=== PATIENT | female | born 1980 | race Caucasian/White ===

== ENCOUNTER 2017-02-01 19:48 | Inpatient (IN) | payer MEDICAID, OTHER ==
[~2017-02-01 19:48] MED LIST: CLON.5 PO; HYDR10FO PR; LIBRAX PO; OXYC10TA8 PO; PRED10 PO; SERT100 PO
[2017-02-01 19:52] VITALS: BP 91/54; PULSE 72; RESP 16; TEMP 97.9; O2SAT 97
[2017-02-01] MEDS ORDERED: OXYC15TA PO (20:44)
[2017-02-01] MEDS ORDERED: BUPR150XL PO (20:44)
[2017-02-01] MEDS ORDERED: LAMO150 PO (20:44)
[2017-02-01] MEDS ORDERED: ZOLO100T PO (20:44)
[2017-02-01] MEDS ORDERED: KLON2TAB PO (20:44)
[2017-02-01 22:05] VITALS: BP 114/55; PULSE 58; RESP 16; TEMP 97.9; O2SAT 99
[2017-02-01] MEDS ORDERED: SODIUM CHLOR 0.9% 1000 ML INJ 1,000 ML IV ONE (22:37)
[2017-02-01] MEDS ORDERED: KETOROLAC TROMETHAMINE 30 MG/ML (IVP) VIAL IVP ONE (22:45)
[2017-02-01] MEDS ORDERED: ONDANSETRON HCL 4 MG/2 ML VIAL IVP ONE (22:45)
[2017-02-01] MEDS ORDERED: PROCHLORPERAZINE INJ 10 MG/2 ML VIAL IVP ONE (22:45)
[2017-02-01] MEDS ORDERED: BUPRENORPHINE HCL 8 MG SUBLINGUAL TAB SL ONE (22:45)
[2017-02-01] MEDS ORDERED: SODIUM CHLORIDE 0.9% FLUSH 10 ML FLUSH IVF PRN (22:45)
[2017-02-01] MEDS ORDERED: SODIUM CHLOR 0.9% 1000 ML INJ 1,000 ML IV SCH (22:45)
[2017-02-01] MEDS ORDERED: diphenhydrAMINE HCL 50 MG/ML VIAL IVP ONE (22:45)
[2017-02-01 23:00] VITALS: BP 102/52; PULSE 60; RESP 26; O2SAT 93
--- NOTE | 2017-02-01 23:00 | PD ---
HPI Chief Complaint: Medical Clearance Time Seen by Provider: 22:52 Travel History International Travel<30 days: No Contact w/Intl Traveler<30days: No Traveled to known affect area: No History of Present Illness HPI 36-year-old female with PMH of depression, anxiety, Crohn's disease, substance abuse in remission presents the ED for evaluation of headache and right-sided neck swelling. Patient states that she was sent by her INDUCTOR TESTER Dr. Forrester who has been managing her medical problem. On presentation she complains of "terrible right-sided migraine headache." She denies photophobia, vision changes or dizziness. She complains of mild nausea and ongoing fatigue. She denies swallowing difficulties. She does endorse a "tickle" in her throat and feeling as if she needs to clear her throat constantly. She denies fever, chills, cough, chest pain, shortness of breath, abdominal pain. I spoke with Dr. Forrester on the phone who states that the patient has been complaining of fatigue for a long period of time. She states over the last 3 or 4 days she had swelling and pain in the right side of the neck. She underwent an outpatient ultrasound and CT that was suspicious for thyroid cancer. Dr. Forrester made the patient aware of this finding and requested that she come to the hospital for ultrasound-guided needle biopsy. Patient states that she is very anxious and "wants to use" but chose to come to the hospital for treatment instead. PFSH Past Medical History ADD: Yes Anemia: Yes Blood Disorders: Yes (CROHN'S DISEASE X 3YRS) Anxiety: Yes Depression: Yes Cancer: Yes (COLON WITH COLECTOMY IN 2007) Cardiovascular Problems: No Chemotherapy: No Diabetes: No Diminished Hearing: No Endocrine: No Gastrointestinal Disorders: Yes (CROHNS) Genitourinary: No Headaches: Yes Immune Disorder: No Musculoskeletal: No Neurologic: No Psychiatric: Yes Respiratory: No Immunizations Current: Yes Migraines: Yes Radiation Therapy: No Seizures: Yes Thyroid Disease: No ?: Not LMP: 01/27/17 Menopausal: No : 2 Para: 1 Miscarriage: 0 : 1 Tubal Ligation: Yes Past Surgical History Abdominal Surgery: Yes AICD: No Body Medical Devices: HISTORY OF CHRONES DISEASE Cardiac Surgery: No Section: Yes (X2) Endocrine Surgery: No Eye Surgery: No Genitourinary Surgery: No Gynecologic Surgery: No Joint Replacement: No Oral Surgery: No Pacemaker: No Thoracic Surgery: No Other Surgery: Yes (PARTIAL COLECTOMY-ANAL FISSURE REPAIR) Social History Alcohol Use: No Tobacco Use: Yes Substance Use: No Allergies-Medications (Allergen,Severity, Reaction): Coded Allergies: Cranberry (Verified Allergy, Severe, Hives, 02/01/17) 10/21/05: PT GETS HIVES WITH CRANBERRIES Morphine (Verified Allergy, Severe, Rash, 02/01/17) Sulfa (Verified Allergy, Severe, Nausea/Vomiting, 02/01/17) Sulfasalazine (Verified Allergy, Severe, 10/24/05:PER H&P,PT TAKES MESALAMINE AT HOME W/O ADV EFF, 02/01/17) 10/24/05: PER H&P, PT TAKES MESALAMINE AT HOME WITHOUT ADVERSE EFFECTS. Dilaudid (Verified Adverse Reaction, Severe, severe headaches, 02/01/17) Reported Meds & Prescriptions Reported Meds & Active Scripts Active Reported Oxycodone (Oxycodone HCl) 15 Mg Tab 15 Mg PO Q4H PRN Wellbutrin Xl 24 HR (Bupropion HCl) 150 Mg Tab 150 Mg PO DAILY Lamictal (Lamotrigine) 150 Mg Tab 150 Mg PO DAILY Zoloft (Sertraline HCl) 100 Mg Tab 100 Mg PO DAILY Klonopin (Clonazepam) 2 Mg Tab 2 Mg PO TID Review of Systems Except as stated in HPI: all other systems reviewed are Neg Physical Exam Narrative GENERAL: Well-nourished, well-developed anxious white female in no acute distress. SKIN: Warm and dry. HEAD: Normocephalic. Atraumatic. EYES: No scleral icterus. No injection or drainage. PERRLA. EOMI. ENT: Pearly mittal tympanic membranes bilaterally. Nasal mucosa is moist. Oropharynx without erythema, edema or exudate. NECK: Supple, trachea midline. No JVD. Large, tender, firm right-sided neck mass. CARDIOVASCULAR: Regular rate and rhythm without murmurs, gallops, or rubs. 2+ DP and radial pulses bilaterally. RESPIRATORY: Breath sounds clear and equal bilaterally. No accessory muscle use. GASTROINTESTINAL: Abdomen soft, non-tender, nondistended. + Bowel sounds MUSCULOSKELETAL: No cyanosis, or edema. Patient is ambulatory and noted to walk with a normal gait. NEUROLOGICAL: Awake and alert. Cranial nerves II through XII intact. Motor and sensory grossly within normal limits. Five out of 5 muscle strength in all muscle groups. Normal speech. BACK: Nontender without obvious deformity. No CVA tenderness. Data Data Last Documented VS Vital Signs Date Time Temp Pulse Resp B/P Pulse Ox O2 Delivery O2 Flow Rate FiO2 02/01/17 22:05 97.9 58 16 114/55 99 Orders Complete Blood Count With Diff (02/01/17 22:37) Comprehensive Metabolic Panel (02/01/17 22:37) Westergren Sedimentation Rate (02/01/17 22:37) C-Reactive Protein (Crp) (02/01/17 22:37) Prothrombin Time / Inr (Pt) (02/01/17 22:37) Act Partial Throm Time (Ptt) (02/01/17 22:37) Ecg Monitoring (02/01/17 22:37) Iv Access Insert/Monitor (02/01/17 22:37) Oximetry (02/01/17 22:37) Sodium Chloride 0.9% Flush (Ns Flush) (02/01/17 22:45) Ketorolac Inj (Toradol Inj) (02/01/17 22:45) Ondansetron Inj (Zofran Inj) (02/01/17 22:45) Prochlorperazine Inj (Compazine Inj) (02/01/17 22:45) Diphenhydramine Inj (Benadryl Inj) (02/01/17 22:45) Sodium Chlor 0.9% 1000 Ml Inj (Ns 1000 M (02/01/17 22:37) Admit Order (Ed Use Only) (02/01/17 22:44) Buprenorphine (Buprenorphine) (02/01/17 22:45) Clonazepam (Klonopin) (02/01/17 22:45) Sodium Chlor 0.9% 1000 Ml Inj (Ns 1000 M (02/01/17 22:45) Labs Laboratory Tests Test 02/01/17 22:45 Erythrocyte Sedimentation Rate 9 mm/hr Prothrombin Time 10.8 SEC Prothromb Time International 1.0 RATIO Ratio Activated Partial 26.1 SEC Thromboplast Time Sodium Level 139 MEQ/L Potassium Level 3.7 MEQ/L Chloride Level 104 MEQ/L Carbon Dioxide Level 27.9 MEQ/L Anion Gap 7 MEQ/L Blood Urea Nitrogen 13 MG/DL Creatinine 0.64 MG/DL Estimat Glomerular Filtration 106 ML/MIN Rate Random Glucose 78 MG/DL Calcium Level 9.1 MG/DL Total Bilirubin 0.4 MG/DL Aspartate Amino Transf 70 U/L (AST/SGOT) Alanine Aminotransferase 75 U/L (ALT/SGPT) Alkaline Phosphatase 100 U/L C-Reactive Protein 0.75 MG/DL Total Protein 7.2 GM/DL Albumin 3.9 GM/DL White Blood Count 6.2 TH/MM3 Red Blood Count 4.45 MIL/MM3 Hemoglobin 13.5 GM/DL Hematocrit 38.0 % Mean Corpuscular Volume 85.5 FL Mean Corpuscular Hemoglobin 30.3 PG Mean Corpuscular Hemoglobin 35.4 % Concent Red Cell Distribution Width 12.4 % Platelet Count 232 TH/MM3 Mean Platelet Volume 9.2 FL Neutrophils (%) (Auto) 48.4 % Lymphocytes (%) (Auto) 34.9 % Monocytes (%) (Auto) 10.1 % Eosinophils (%) (Auto) 6.0 % Basophils (%) (Auto) 0.6 % Neutrophils # (Auto) 3.0 TH/MM3 Lymphocytes # (Auto) 2.2 TH/MM3 Monocytes # (Auto) 0.6 TH/MM3 Eosinophils # (Auto) 0.4 TH/MM3 Basophils # (Auto) 0.0 TH/MM3 CBC Comment DIFF FINAL Differential Comment MDM Medical Decision Making Medical Screen Exam Complete: Yes Emergency Medical Condition: Yes Differential Diagnosis neck mass versus thyroid mass versus lymphadenopathy versus cephalgia versus anxiety versus other Narrative Course 36-year-old female with PMH of depression, anxiety, Crohn's disease, substance abuse in remission presents the ED for evaluation of headache and right-sided neck swelling. On presentation she complains of "terrible right-sided migraine headache." She complains of mild nausea and ongoing fatigue. She denies photophobia, vision changes, dizziness, or swallowing difficulties. She does endorse a "tickle" in her throat and feeling as if she needs to clear her throat constantly. She denies fever, chills, cough, chest pain, shortness of breath, abdominal pain. Patient states that she is very anxious and "wants to use" but chose to come to the hospital for treatment instead. Vitals reviewed. Physical exam reveals an anxious white female in no acute distress. No focal neural deficits. There is a palpable mass in the right anterior neck but the physical exam is otherwise unremarkable. IV was established. Patient was administered Benadryl, Toradol, Compazine, 1 L normal saline. I offered her second dose of Suboxone which she declined. I spoke with Dr. Forrester on the phone who states that the patient has been complaining of fatigue for a long period of time. She states over the last 3 or 4 days she had swelling and pain in the right side of the neck. The patient underwent an outpatient ultrasound and CT that was suspicious for thyroid cancer. Dr. Forrester made the patient aware of this finding and requested that she come to the hospital for ultrasound-guided needle biopsy. OUTPATIENT IMAGING: US 01/31 ([place]) massive right neck representing either multiple adjacent lymph nodes for one solid mass. CT 02/01 ([place]) heterogeneously enhancing nodule in the superior aspect of the right lobe of the thyroid with enlarged, enhancing and centrally necrotic nodes in the jugular chain. Concerning for malignancy, possible thyroid in origin. Suggest ultrasound guided biopsy. Patient admitted to Dr. Forrester. US biopsy ordered. Please see those notes for disposition. Diagnosis Primary Impression: Neck mass Additional Impression: Cephalgia Qualified Code: R51 - Nonintractable episodic headache, unspecified headache type Maura Mendiola Feb 01, 2017 23:00
[2017-02-01 23:13] LABS: ALT (GPT) 75 U/L (10-53); ANION GAP 7 MEQ/L (5-15); AST (GOT) 70 U/L (15-37); BICARBONATE 27.9 MEQ/L (21.0-32.0); BLOOD UREA NITROGEN 13 MG/DL (7-18); CHLORIDE 104 MEQ/L (98-107); GLOMERULAR FILTRATION RATE 106 ML/MIN (>89); POTASSIUM 3.7 MEQ/L (3.5-5.1); SODIUM (NA) 139 MEQ/L (136-145)
[2017-02-01 23:15] LABS: ALKALINE PHOSPHATASE 100 U/L (45-117); TOTAL BILIRUBIN ADULT 0.4 MG/DL (0.2-1.0)
[2017-02-01 23:33] LABS: APTT (PATIENT) 26.1 SEC (24.3-30.1); PROTHROMBIN TIME - PATIENT 10.8 SEC (9.8-11.6)
[2017-02-02] VITALS (11 sets, daily range): BP systolic 82–112; BP diastolic 41–72; PULSE 51–100; RESP 15–18; TEMP 96.8–98.2; O2SAT 93–96
[2017-02-02 02:08] LABS: BASOPHIL % 0.6 % (0.0-2.0); EOSINOPHIL # 0.4 TH/MM3 (0-0.4); HEMO FLAGS DIFF FINAL; LYMPH % 34.9 % (9.0-44.0); LYMPHOCYTE # 2.2 TH/MM3 (1.0-4.8); MEAN CELL VOLUME 85.5 FL (80.0-100.0); MEAN CORPUSCULAR HEMOGLOBIN 30.3 PG (27.0-34.0); MEAN CORPUSCULAR HGB CONC 35.4 % (32.0-36.0); MONO % 10.1 % (0.0-8.0); NEUT % 48.4 % (16.0-70.0); PLATELET COUNT 232 TH/MM3 (150-450); RED BLOOD COUNT 4.45 MIL/MM3 (4.00-5.30); RED CELL DISTRIBUTION WIDTH 12.4 % (11.6-17.2); WHITE BLOOD COUNT 6.2 TH/MM3 (4.0-11.0)
--- NOTE | 2017-02-02 07:59 | PD.CONS ---
HPI Chief Complaint cc progressive right neck swelling and pain of several days in context of increasing fatigue and weakness over several months complicated by her depression, anxiety and opioid maintenance program Date Seen: Feb 02, 2017 Time Seen: 07:51 Travel History International Travel<30 Days: No Contact w/Intl Traveler<30Days: No Known Affected Area: No History of Present Illness HPI 36 yo mwf P2 with long history of substance abuse, developed during treatment for Crohn's (which is quiet as this time) Has had several Crohn's procedures and two sections. Difficult management of dual diagnosis over last several years with difficulty identifying theraputic and psychiatric sources of support. Both insurance issues and her reticence to seek additional treatment have been problems SHe was to have first session and [facility] therapy today. Has in past abused her scripts but in last months compliant as confirmed by drug screens. Has continued malaise, dysphoria, agorophobia and overall pain. Chronic right ear aches and pain. Exam on Tuesday was remarkable for large irregular mass in right anterior triangle now imaged and biopsy recommended. She is panicked and describes desire to use illicit drugs due to stress. Brought in last night. Pain in neck is 5-6. Can swallow but tender. Voice not involved. No symptoms radiating down right arm. No fever. Bowels and bladder unchanged Para: 3 Allergies-Medications (Allergen,Severity, Reaction): Coded Allergies: Cranberry (Verified Allergy, Severe, Hives, 02/01/17) 10/21/05: PT GETS HIVES WITH CRANBERRIES Morphine (Verified Allergy, Severe, Rash, 02/01/17) Sulfa (Verified Allergy, Severe, Nausea/Vomiting, 02/01/17) Sulfasalazine (Verified Allergy, Severe, 10/24/05:PER MD H&P,PT TAKES MESALAMINE AT HOME W/O ADV EFF, 02/01/17) 10/24/05: PER MD H&P, PT TAKES MESALAMINE AT HOME WITHOUT ADVERSE EFFECTS. Dilaudid (Verified Adverse Reaction, Severe, severe headaches, 02/01/17) Home Meds Reported Medications Oxycodone 15 Mg Tab15 Mg PO Q4H PRN (PAIN) Ref 0 02/01/17 Bupropion HCl ER 24 HR (Wellbutrin Xl 24 HR)150 Mg [id number] Mg PO DAILY Ref 0 02/01/17 Lamotrigine (Lamictal)150 Mg [id number] Mg PO DAILY #60 TAB Ref 0 02/01/17 Sertraline (Zoloft)100 Mg [id number] Mg PO DAILY #30 TAB Ref 0 02/01/17 Clonazepam (Klonopin)2 Mg Tab2 Mg PO TID #90 TAB Ref 0 02/01/17 Review of Systems Eyes: Pain HENT: Headaches, Lightheadedness Musculoskeletal: Weakness, Pain Neurologic: Weakness, Headache Psychiatric: Anxiety, Depression, Mood Disorder, Substance Abuse Hematologic/Lymphatic: Lymph Node Enlargement Physical Exam Vital Signs Date Time Temp Pulse Resp B/P Pulse Ox O2 Delivery O2 Flow Rate FiO2 02/02/17 04:05 98.1 52 16 95/48 96 02/02/17 02:39 97.1 56 16 89/59 94 02/02/17 02:02 64 12 101/62 94 02/02/17 01:33 56 16 99/55 94 02/02/17 00:00 64 15 100/56 93 02/01/17 23:00 60 26 102/52 93 02/01/17 22:05 97.9 58 16 114/55 99 02/01/17 19:52 97.9 72 16 91/54 97 Narrative GENERAL: Well-nourished, well-developed patient. SKIN: Warm and dry. HEAD: Normocephalic and atraumatic. EYES: No scleral icterus. No injection or drainage. ENT: No nasal drainage noted. Mucous membranes pink. Airway patent. Mass as described and imaged NECK: Supple, trachea midline. No JVD. as above CARDIOVASCULAR: Regular rate and rhythm without murmurs, gallops, or rubs. RESPIRATORY: Breath sounds equal bilaterally. No accessory muscle use. BREASTS: Bilateral exam showed no masses , no retractions, no nipple discharge. ABDOMEN/GI: Abdomen soft, non-tender, bowel sounds present, no rebound, no guarding EXTREMITIES: No cyanosis or edema. BACK: Nontender without obvious deformity. No CVA tenderness. NEUROLOGICAL: Awake and alert. Motor and sensory grossly within normal limits. Five out of 5 muscle strength in all muscle groups. Normal speech. Data Data Vital Signs Reviewed: Yes Orders Complete Blood Count With Diff (02/01/17 22:37) Comprehensive Metabolic Panel (02/01/17 22:37) Westergren Sedimentation Rate (02/01/17 22:37) C-Reactive Protein (Crp) (02/01/17 22:37) Prothrombin Time / Inr (Pt) (02/01/17 22:37) Act Partial Throm Time (Ptt) (02/01/17 22:37) Ecg Monitoring (02/01/17 22:37) Iv Access Insert/Monitor (02/01/17 22:37) Oximetry (02/01/17 22:37) Sodium Chloride 0.9% Flush (Ns Flush) (02/01/17 22:45) Ketorolac Inj (Toradol Inj) (02/01/17 22:45) Ondansetron Inj (Zofran Inj) (02/01/17 22:45) Prochlorperazine Inj (Compazine Inj) (02/01/17 22:45) Diphenhydramine Inj (Benadryl Inj) (02/01/17 22:45) Sodium Chlor 0.9% 1000 Ml Inj (Ns 1000 M (02/01/17 22:37) Admit Order (Ed Use Only) (02/01/17 22:44) Buprenorphine (Buprenorphine) (02/01/17 22:45) Clonazepam (Klonopin) (02/01/17 22:45) Sodium Chlor 0.9% 1000 Ml Inj (Ns 1000 M (02/01/17 22:45) Activity Oob Ad Salma (02/01/17 23:00) Vital Signs (Adult) [id number].[id number] AWAKE (02/01/17 23:00) Diet Npo Except Meds (02/02/17 Breakfast) Labs Laboratory Tests Test 02/01/17 22:45 Erythrocyte Sedimentation Rate 9 Prothrombin Time 10.8 Prothromb Time International 1.0 Ratio Activated Partial 26.1 Thromboplast Time Sodium Level 139 Potassium Level 3.7 Chloride Level 104 Carbon Dioxide Level 27.9 Anion Gap 7 Blood Urea Nitrogen 13 Creatinine 0.64 Estimat Glomerular Filtration 106 Rate Random Glucose 78 Calcium Level 9.1 Total Bilirubin 0.4 Aspartate Amino Transf 70 (AST/SGOT) Alanine Aminotransferase 75 (ALT/SGPT) Alkaline Phosphatase 100 C-Reactive Protein 0.75 Total Protein 7.2 Albumin 3.9 White Blood Count 6.2 Red Blood Count 4.45 Hemoglobin 13.5 Hematocrit 38.0 Mean Corpuscular Volume 85.5 Mean Corpuscular Hemoglobin 30.3 Mean Corpuscular Hemoglobin 35.4 Concent Red Cell Distribution Width 12.4 Platelet Count 232 Mean Platelet Volume 9.2 Neutrophils (%) (Auto) 48.4 Lymphocytes (%) (Auto) 34.9 Monocytes (%) (Auto) 10.1 Eosinophils (%) (Auto) 6.0 Basophils (%) (Auto) 0.6 Neutrophils # (Auto) 3.0 Lymphocytes # (Auto) 2.2 Monocytes # (Auto) 0.6 Eosinophils # (Auto) 0.4 Basophils # (Auto) 0.0 CBC Comment DIFF FINAL Differential Comment MDM Plan needs biospy of mass needs medication maintenance [facility] current medication regimen provided by [facility] skinner Admitting diagnosis: neck mass Claire Forrester MD Feb 02, 2017 07:58
[2017-02-02] MEDS ORDERED: PILL SPLITTER OTHER PRN (08:15)
[2017-02-02 10:14] LABS: BETA HCG QUANT LESS THAN 1 MIU/ML (0-5)
[2017-02-02] MEDS ORDERED: KETOROLAC TROMETHAMINE 30 MG/ML (IVP) VIAL IV PUSH ONE (11:00)
[2017-02-02] MEDS: AMOXICILLIN/CLAVULANATE K 875 MG TAB PO SCH ×2 (11:00→19:50)
[2017-02-02] MEDS: lamoTRIgine 100 MG TAB PO SCH (11:00)
[2017-02-02] MEDS: BUPRENORPHINE/NALOXONE 8 MG/2 MG SUBLINGUAL TAB SL SCH ×3 (13:00→18:00)
[2017-02-02] MEDS ORDERED: LIDOCAINE 1%/EPINEPHrine 1:100,000 SOLN 20 ML VIAL ONE (14:10)
[2017-02-02] MEDS ORDERED: fentaNYL CITRATE 250 MCG/5 ML AMP ONE (14:18)
[2017-02-02] MEDS ORDERED: MIDAZOLAM HCL 5 MG/5 ML VIAL ONE (14:19)
--- NOTE | 2017-02-02 15:42 | PD.RAD ---
Post CT Procedure Prog Note Pre Procedure Diagnosis: (1) Neck mass Post Procedure Diagnosis: (1) Neck mass Procedure Date: Feb 02, 2017 Supervising Radiologist: Enio Bush Proceduralist/Assist: Amado Frances RT(R)(CT) Anesthesia: Conscious Sedation Plan of Activity Patient to Unit: Nursing Unit Patient Condition: Good See PACS Report for procedural detail/treatment Biopsy Biopsy Procedure: Lymph Node Specimen: Core Biopsy Enio Bush MD Feb 02, 2017 15:42
--- NOTE | 2017-02-02 16:16 | RADRPT ---
EXAM DATE/TIME: 02/02/2017 14:37 [facility] COMPARISON: No previous studies available for comparison.8 INDICATIONS : Right neck mass SEDATION TIME: 30 minutes BIOPSY SITE: Right neck MEDICATION(S): 1.) 2 mg midazolam (Versed) IV 2.) 100 mcg fentanyl (Sublimaze) IV DEVICE(S): 1.) 18 gauge Temno core biopsy needle MEDICAL HISTORY : Crohn's disease. SURGICAL HISTORY : Colectomy ENCOUNTER: Initial ACUITY: 3 days PAIN SCORE: 5/10 LOCATION: Right neck A total of three core specimen(s) were obtained and sent to the laboratory for pathologic evaluation. PROCEDURE: 1. CT guided soft tissue, rightneck biopsy. 2. Conscious sedation with continuous EKG and oximetry monitoring. 3. EKG and oximetry remained stable throughout the procedure. Prior to the procedure informed consent was obtained. Any appropriate prior imaging studies were rev iewed. Using automated exposure control and adjustment of the mA and/or kV according to patient size, radiat ion dose was kept as low as reasonably achievable to obtain optimal diagnostic quality images. The site was prepped in a sterile fashion. Full sterile technique was used, including cap, mask, kylee rile gloves and gown and a large sterile sheet. Hand hygiene and 2% chlorhexidine and/or betadine/al cohol prep was utilized per protocol for cutaneous antisepsis. The skin and subcutaneous tissues wer e infiltrated with local anesthetic solution. With CT guidance the previously identified target was localized. Biopsy was performed using the presc ribed needle as above. Adequate hemostasis was obtained with compression at the puncture site. Follow-up CT scan reveals no hemorrhage. The patient tolerated the procedure well and there were no complications. The patient was returned to the Radiology Outpatient Unit in stable condition. CONCLUSION: Uncomplicated CT guided biopsy. Enio Bush MD on February 02, 2017 at 16:14 Board Certified Radiologist. This report was verified electronically.
[2017-02-02] MEDS: clonazePAM 1 MG TAB PO PRN (16:17)
[2017-02-02] MEDS ORDERED: KETOROLAC TROMETHAMINE 30 MG/ML (IVP) VIAL IV PUSH PRN (18:00)
--- NOTE | 2017-02-02 18:06 | HHI.PR ---
ELIGIBILITY AND OCCUPANCY INTERVIEWER Note Note Resting quietly after CT directed biopy anxious about results labs reviewed and elevated LFTS in part due to hep C Imp: thyroid/lymph node pathology clinically seen and characterized on imaging with path pending subutex dependent anxiety disorder Crohns hep C migraine plan for discharge in am will give sleeper tonight and ofirmev if needed Claire Forrester MD Feb 02, 2017 18:06
[2017-02-02] MEDS ORDERED: ACETAMINOPHEN 1000 MG/100 ML VIAL IV ONE (18:15)
[2017-02-02] MEDS ORDERED: ZOLPIDEM TARTRATE 10 MG TAB PO ONE (20:00)
[2017-02-02] MEDS ORDERED: ACETAMIN 325 MG/BUTALBITAL 50 MG/CAFFEINE 40 MG TAB PO ONE (20:00)
[2017-02-02] MEDS: diphenhydrAMINE HCL 50 MG/ML VIAL IV PRN (23:22)
[2017-02-02] MEDS: ONDANSETRON HCL 4 MG/2 ML VIAL IV PRN (23:22)
[2017-02-02] MEDS: KETOROLAC TROMETHAMINE 30 MG/ML (IVP) VIAL IV PUSH PRN (23:24)
[2017-02-03] VITALS: BP 99/54; PULSE 58; RESP 16; TEMP 96.9; O2SAT 96
[2017-02-03 04:00] VITALS: BP 100/49; PULSE 71; RESP 16; TEMP 97; O2SAT 95
[2017-02-03 08:04] VITALS: BP 101/54; PULSE 68; RESP 16; TEMP 97.5; O2SAT 94
[2017-02-03] MEDS: AMOXICILLIN/CLAVULANATE K 875 MG TAB PO SCH (08:18)
[2017-02-03] MEDS: lamoTRIgine 100 MG TAB PO SCH (08:18)
[2017-02-03] MEDS: BUPRENORPHINE/NALOXONE 8 MG/2 MG SUBLINGUAL TAB SL SCH ×3 (08:18→17:31)
[2017-02-03] MEDS: KETOROLAC TROMETHAMINE 30 MG/ML (IVP) VIAL IV PUSH PRN ×2 (08:18→17:30)
--- NOTE | 2017-02-03 10:37 | PD.PN.STU ---
Subjective Remarks Patient was laying in bed, she states that she feels uncomfortable both at needle biopsy site and in general. She disclosed that if we had not admitted her , she was going to use Dilaudid if she remained on the streets rather than being admitted to the hospital. To our knowledge she has not deviated from suboxone program recently Some UDS in office have been bad. she would prefer fentanyl or morphine but she has Dilaudid accessible. She denies any use. She states that she is just not feeling well because of a combination of the neck biopsy, fear of the unknown and her Crohn's acting up. She states that her grandfather with an enlarging neck mass although she is unsure of the etiology or pathology. Objective Vitals General: patient was laying in bed, did not appear to be in any distress although did appear to be worried/anxious. She has a bandage on the right side of her neck from the biopsy but otherwise appears to be intact. Vital Signs Date Time Temp Pulse Resp B/P Pulse Ox O2 Delivery O2 Flow Rate FiO2 02/03/17 08:04 97.5 68 16 101/54 94 02/03/17 04:00 97.0 71 16 100/49 95 02/03/17 00:00 96.9 58 16 99/54 96 02/02/17 20:00 96.8 100 17 82/51 96 02/02/17 16:57 98.2 88 18 97/53 96 02/02/17 15:45 84 17 112/72 93 02/02/17 15:30 98.2 68 18 111/63 95 02/02/17 12:00 97.1 51 18 94/53 95 I/O 02/02/17 02/02/17 02/02/17 02/03/17 02/03/17 02/03/17 07:00 15:00 23:00 07:00 15:00 23:00 Intake Total 0 ml 0 ml 240 ml 240 ml Balance 0 ml 0 ml 240 ml 240 ml Intake Oral 0 ml 0 ml 240 ml 240 ml # Voids 0 2 1 2 # Bowel Movements 0 0 0 0 Result Diagram: 02/01/17224402/01/172244 A/P Assessment and Plan Neck Mass will discuss with Pathology to determine etiology and best course of action Get surgical consult for evaluation of R neck mass in the event it will require excision or other operative procedures. Crohn's be cautious about foods that are know to cause flares Anxiety: patient is quite anxious, she is not being controlled with Klonopin will consider adding another medication, possibly BuSpar Opioid Dependance: continue Suboxone Discharge Planning Once patient has met with surgery and pathology reports are back to help perform a plan of action patient will be ready for discharge, likely this evening or tomorrow. Will need to be cautious in her current state, she will be at risk for relapse, close follow up recommended Emeka New Feb 03, 2017 10:36 Claire Forrester MD Feb 03, 2017 10:40
[2017-02-03] MEDS: SUCRALFATE 1 GM TAB PO SCH ×3 (11:41→20:45)
[2017-02-03] MEDS: clonazePAM 1 MG TAB PO PRN ×2 (11:47→17:30)
[2017-02-03] MEDS: MORPHINE SULFATE ORAL SOLN 10 MG/0.5 ML SYRINGE PO PRN ×2 (13:35→21:02)
[2017-02-03] MEDS: diphenhydrAMINE HCL 50 MG/ML VIAL IV PRN ×2 (13:45→21:07)
[2017-02-03] MEDS: ONDANSETRON HCL 4 MG/2 ML VIAL IV PRN ×2 (14:44→21:07)
[2017-02-03] MEDS: busPIRone HCL 10 MG TAB PO SCH ×2 (14:47→22:00)
[2017-02-03 15:30] VITALS: BP 109/76; PULSE 82; RESP 16; TEMP 98.8; O2SAT 94
--- NOTE | 2017-02-03 17:05 | PD.CONS ---
cc: Jose Greer MD [facility] Service General Surgery Consult Requested By Dr. Forrester Reason for Consult Evaluation of right-sided neck mass Primary Care Physician Claire Forrester MD History of Present Illness This is a 36-year-old female with past medical history of Crohn's disease, anal fissure, anxiety and depression. She was seen in Dr. Forrester's office for routine evaluation where she complained of right-sided neck pain. Dr. Forrester sent the patient to the ED to be admitted and workup right-sided neck mass. The patient states that approximately 4 months ago she had 3 right ear infections, several migraines and mono. The patient noticed 3 months ago a right sided small mass and pain. Associated symptoms with the mass are chronic coughing, hoarseness and difficulty swallowing. She does not complain of difficulty breathing at any time unless strenuous exercise. The patient has anxiety and has been upset about this mass. She is worried that it may be cancer. On this admission she had a CT-guided lymph node biopsy. The pathology results are pending. A General Surgery evaluation has been requested for evaluation of right-sided neck mass. Review of Systems Constitutional: COMPLAINS OF: Diaphoretic episodes, Fatigue, Weight gain, Change in appetite Endocrine: COMPLAINS OF: Heat/cold intolerance, Polydipsia, Polyuria, DENIES: Polyphagia Eyes: COMPLAINS OF: Blurred vision Ears, nose, mouth, throat: COMPLAINS OF: Throat pain, Hoarseness, Ear Pain ( RIGHT sided ) Respiratory: COMPLAINS OF: Cough Cardiovascular: DENIES: Chest pain Gastrointestinal: COMPLAINS OF: Nausea, Vomiting, Difficulty Swallowing, DENIES: Abdominal pain Genitourinary: COMPLAINS OF: Urinary frequency, Urinary incontinence Musculoskeletal: DENIES: Joint pain Integumentary: DENIES: Abnormal pigmentation Hematologic/lymphatic: DENIES: Bruising Immunologic/allergic: DENIES: Eczema Neurologic: COMPLAINS OF: Localized weakness Psychiatric: COMPLAINS OF: Anxiety, Mood changes, Depression Past Family Social History Past Medical History Crohn's disease Anal fissure Hepatitis C Anxiety and depression Past Surgical History Partial colectomy for Crohn's disease Anal fissure repair Reported Medications See chart Allergies: Coded Allergies: Cranberry (Verified Allergy, Severe, Hives, 02/01/17) 10/21/05: PT GETS HIVES WITH CRANBERRIES Morphine (Verified Allergy, Severe, Rash, 02/01/17) Sulfa (Verified Allergy, Severe, Nausea/Vomiting, 02/01/17) Sulfasalazine (Verified Allergy, Severe, 10/24/05:PER MD H&P,PT TAKES MESALAMINE AT HOME W/O ADV EFF, 02/01/17) 10/24/05: PER MD H&P, PT TAKES MESALAMINE AT HOME WITHOUT ADVERSE EFFECTS. Dilaudid (Verified Adverse Reaction, Severe, severe headaches, 02/01/17) Active Ordered Medications Current Medications Medications (Trade) Dose Ordered Sig/Rose Route Start Time Stop Time Status Last Admin (NS Flush) 2 ml UNSCH PRN IVF 02/01/17 22:45 (KlonoPIN) 1 mg QID PRN PO 02/01/17 22:45 02/03/17 11:47 (Buprenorphine-Naloxone 8-2 Mg) 1 tab TID SL 02/02/17 09:00 02/03/17 08:18 (LaMICtal) 150 mg DAILY PO 02/02/17 09:00 02/03/17 08:18 (Pill Splitter) 1 ea UNSCH PRN OTHER 02/02/17 08:15 (Augmentin) 875 mg Q12HR PO 02/02/17 09:00 02/03/17 08:18 (Toradol Inj) 30 mg Q6H PRN IV PUSH 02/02/17 22:15 02/07/17 22:14 02/03/17 08:18 (Benadryl Inj) 50 mg Q6H PRN IV 02/02/17 22:15 02/03/17 13:45 (Zofran Inj) 4 mg Q6H PRN IV 02/02/17 22:15 02/03/17 14:44 (Carafate) 1 gm ACHS PO 02/03/17 11:00 02/03/17 11:41 (Buspar) 10 mg Q8HR PO 02/03/17 14:00 02/03/17 14:47 (Roxanol Liq) 10 mg Q6H PRN PO 02/03/17 13:00 02/03/17 13:35 Family History Paternal grandmother's brother-- cancerous neck mass of unknown etiology Paternal grandmother-bladder cancer and throat cancer Maternal grandfather-esophagus cancer Maternal grandmother-questionable bladder cancer Social History Former smoker Denies EtOH use Daily marijuana use Physical Exam Vital Signs Vital Signs Date Time Temp Pulse Resp B/P Pulse Ox O2 Delivery O2 Flow Rate FiO2 02/03/17 15:30 98.8 82 16 109/76 94 02/03/17 08:04 97.5 68 16 101/54 94 02/03/17 04:00 97.0 71 16 100/49 95 02/03/17 00:00 96.9 58 16 99/54 96 02/02/17 20:00 96.8 100 17 82/51 96 02/02/17 16:57 98.2 88 18 97/53 96 Physical Exam GENERAL: 36-year-old female resting in bed in no acute distress SKIN: Warm and dry. HEAD: Atraumatic. Normocephalic. EYES: Pupils equal and round. No scleral icterus. No injection or drainage. ENT: No nasal bleeding or discharge. Mucous membranes pink and moist. Poor dentition NECK: Trachea midline. Bandage in place on right side of neck status post CT- guided lymph node biopsy. Palpable firm mass on right side of neck. CARDIOVASCULAR: Regular rate and rhythm. RESPIRATORY: No accessory muscle use. Clear to auscultation. Breath sounds equal bilaterally. GASTROINTESTINAL: Abdomen soft, non-tender, nondistended. Positive bowel sounds. Several healed scars. MUSCULOSKELETAL: Extremities without clubbing, cyanosis, or edema. No obvious deformities. NEUROLOGICAL: Awake and alert. No obvious cranial nerve deficits. Motor grossly within normal limits. Five out of 5 muscle strength in the arms and legs. Normal speech. PSYCHIATRIC: Appropriate mood and affect; insight and judgment normal. Result Diagram: 02/01/17224402/01/172244 Imaging Last 48 hours Impressions Lymph Node Biopsy CT 02/02/17 1431 Signed Impressions: Service Date/Time: Thursday, February 02, 2017 14:37 - CONCLUSION: Uncomplicated CT guided biopsy. Enio Bush MD Assessment and Plan Assessment and Plan This is a 36-year-old female with a past medical history of Crohn's disease with anxiety and depression; sent to the ER by Dr. Forrester for evaluation of right-sided neck mass and pain. -Await pathology results from CT-guided lymph node biopsy -Pain control -Patient requests gas ex and Mylanta -Diet as tolerated -Discussed with Dr. Greer Discussed Condition With Dr. Greer Mrs. Kanchan Yadav Attending Statement The exam, history, and the medical decision-making described in the above note were completed with the assistance of the mid-level provider. I reviewed and agree with the findings presented. I attest that I had a [id number] encounter with the patient on the same day, and personally performed and documented my assessment and findings in the medical record. neck with soft, mobile level III neck mass, s/p biopsy no acute surgical intervention at this time f/u biopsy, further recommendations depending on results of biopsy Ute Epperson Feb 03, 2017 17:05 Jose Greer MD Feb 03, 2017 20:33
[2017-02-03] MEDS ORDERED: SIMETHICONE 80 MG CHEWABLE TAB CHEW PRN (18:30)
[2017-02-03] MEDS: ALUMINUM/MAGNESIUM/SIMETH 30 ML CUP PO PRN (18:50)
[2017-02-03 19:30] VITALS: BP 116/66; PULSE 81; RESP 17; TEMP 98.7; O2SAT 96
[2017-02-03 19:38] VITALS: BP 104/63; PULSE 62; RESP 16; TEMP 97.3; O2SAT 96
--- NOTE | 2017-02-03 20:37 | HHI.PR ---
UNDERWEAR CUTTER Note Note Patient states very rough day: can't get comfortable or stop racing thoughts. Desires to use and having significant cravings. Her klonipin was prn instead of 1 mg QID and this has been changed. I have reviewed that preliminary of biopsy is a papillary tumor of possible thyroid origin. Wkll give her morphine now and ambien HS and hope that she has a better night and we get the biopsy in the am. Claire Forrester MD Feb 03, 2017 20:37
[2017-02-03] MEDS ORDERED: ZOLPIDEM TARTRATE 10 MG TAB PO ONE (20:45)
[2017-02-03] MEDS: clonazePAM 1 MG TAB PO SCH (21:02)
[2017-02-04] VITALS: BP 107/59; PULSE 73; RESP 16; TEMP 96.4; O2SAT 95
[2017-02-04] MEDS: KETOROLAC TROMETHAMINE 30 MG/ML (IVP) VIAL IV PUSH PRN ×3 (02:43→18:06)
[2017-02-04] MEDS: ONDANSETRON HCL 4 MG/2 ML VIAL IV PRN ×4 (02:43→21:30)
[2017-02-04] MEDS: diphenhydrAMINE HCL 50 MG/ML VIAL IV PRN ×3 (02:44→21:25)
[2017-02-04] MEDS: MORPHINE SULFATE ORAL SOLN 10 MG/0.5 ML SYRINGE PO PRN ×4 (02:44→21:25)
[2017-02-04] MEDS: busPIRone HCL 10 MG TAB PO SCH ×3 (05:39→21:32)
[2017-02-04] MEDS: SUCRALFATE 1 GM TAB PO SCH ×4 (05:39→19:46)
[2017-02-04 08:06] VITALS: BP 98/58; PULSE 67; RESP 16; TEMP 96; O2SAT 99
--- NOTE | 2017-02-04 08:26 | HHI.PR ---
FOOD CONSULTANT Note Note Quiet night with morphine dose and ambien still complaining of severe migraine mostly on right side. This has been going on for three weeks. awaiting path this am and aniticipating excision based on results stable on cocktail of meds for opioid dependence, anxiety, depression, PTSD will await consultants' recommendations. Claire Forrester MD Feb 04, 2017 08:26
[2017-02-04] MEDS ORDERED: ACETAMIN 325 MG/BUTALBITAL 50 MG/CAFFEINE 40 MG TAB PO ONE ×2 (08:30→09:00)
[2017-02-04] MEDS: lamoTRIgine 100 MG TAB PO SCH (08:33)
[2017-02-04] MEDS: clonazePAM 1 MG TAB PO SCH ×4 (08:33→19:46)
[2017-02-04] MEDS: BUPRENORPHINE/NALOXONE 8 MG/2 MG SUBLINGUAL TAB SL SCH ×3 (09:00→18:00)
[2017-02-04] MEDS: ALUMINUM/MAGNESIUM/SIMETH 30 ML CUP PO PRN ×2 (09:45→18:10)
[2017-02-04 11:17] VITALS: BP 107/68; PULSE 58; RESP 17; TEMP 98.5; O2SAT 96
[2017-02-04] MEDS: cloNIDine HCL 0.1 MG TAB PO SCH ×3 (13:06→19:46)
[2017-02-04] MEDS: SERTRALINE HCL 100 MG TAB PO SCH (14:53)
--- NOTE | 2017-02-04 15:21 | HHI.PR ---
JOB SPECIFICATION WRITER Note Note Much conversation with Kanchan today and with her nurse regarding reasonable expectations for pain and anxiety control. Kanchan did not tell me she has been refusing her suboxone and then complaining of breakthrough pain and withdrawal symptoms. I added morphine. It is my experience that opioid agonists added to established suboxone do not precipitate withdrawal. However the reverse is problematic and now she is requesting methadone or more opioids as she is anxious about resuming her suboxone and precipitating withdrawal symptoms. I feel this was manipulative. We reviewed in great detail all her psych meds and what to resume and I am firmly requesting she resume her bupreorphine even in the face of some precipitated withdrawal effects, for which i hae prescribed clonidine. Still waiting for her path report. Claire Forrester MD Feb 04, 2017 15:21
[2017-02-04 15:42] VITALS: BP 105/55; PULSE 61; RESP 17; TEMP 95.1; O2SAT 97
--- NOTE | 2017-02-04 16:42 | HHI.PR ---
LITERATURE PROFESSOR Note Note Spoke with Dr. Almonte and this is a metastatic thyroid papillary carinoma. Spoke with Dr. Polanco who will see Kanchan as an outpatient to obtain PET scan and schedule neck surgery and radioactive dye. Spoke with peer to peer MD for [facility] and admission approved through 02/05/17. Claire Forrester MD Feb 04, 2017 16:42
--- NOTE | 2017-02-04 16:48 | HHI.DCPOC ---
Discharge Care Plan Additional Problems has script for buprenorphine at home along with other scripts and no new scripts needed for discharge Report Symptoms to Your Doctor -Temperate above 100.5 degrees -Redness, of incision or excessive or foul smelling drainage -Unusual pain or calf pain -Increased vaginal bleeding -Painful or difficulty urinating -Feelings of extreme sadness or anxiety after 2 weeks Goals to Promote Your Health * To prevent worsening of your condition and complications * To maintain your health at the optimal level Directions to Meet Your Goals Take your medications as prescribed Follow your dietary instruction Follow activity as directed Ensure plenty of rest for recovery Drink fluids for hydration Keep your appointments as scheduled Take your immunizations and boosters as scheduled If your symptoms worsen call your PCP, if no PCP go to Urgent Care Center or Emergency Room Smoking is Dangerous to Your Health. Avoid second hand smoke Call the 24-hour crisis hotline for domestic abuse at Claire Forrester MD Feb 04, 2017 16:47
[2017-02-04 16:53] LABS: FREE T3 2.18 PG/ML (2.18-3.98); FREE T4 0.89 NG/DL (0.76-1.46)
[2017-02-04] MEDS: LORazepam 2 MG/ML VIAL IM ONE ×2 (17:42→17:51)
[2017-02-04 20:42] VITALS: BP 105/57; PULSE 67; RESP 16; TEMP 97.5; O2SAT 95
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
[2017-02-05 00:13] VITALS: BP 95/51; PULSE 59; RESP 16; TEMP 96.8; O2SAT 95
[2017-02-05] MEDS: KETOROLAC TROMETHAMINE 30 MG/ML (IVP) VIAL IV PUSH PRN ×2 (02:46→09:49)
[2017-02-05] MEDS: MORPHINE SULFATE ORAL SOLN 10 MG/0.5 ML SYRINGE PO PRN (03:58)
[2017-02-05] MEDS: ONDANSETRON HCL 4 MG/2 ML VIAL IV PRN ×2 (03:58→09:49)
[2017-02-05] MEDS: diphenhydrAMINE HCL 50 MG/ML VIAL IV PRN (03:58)
[2017-02-05 05:04] VITALS: BP 99/57; PULSE 72; RESP 18; TEMP 98.5; O2SAT 94
[2017-02-05] MEDS: busPIRone HCL 10 MG TAB PO SCH (06:19)
[2017-02-05] MEDS: SUCRALFATE 1 GM TAB PO SCH ×2 (06:19→11:00)
[2017-02-05] MEDS: ALUMINUM/MAGNESIUM/SIMETH 30 ML CUP PO PRN (06:20)
[2017-02-05 07:57] VITALS: BP 98/47; PULSE 60; RESP 18; TEMP 97.3; O2SAT 96
[2017-02-05] MEDS: clonazePAM 1 MG TAB PO SCH (07:58)
[2017-02-05] MEDS: BUPRENORPHINE/NALOXONE 8 MG/2 MG SUBLINGUAL TAB SL SCH (07:58)
[2017-02-05] MEDS: SERTRALINE HCL 100 MG TAB PO SCH (07:59)
[2017-02-05] MEDS: lamoTRIgine 100 MG TAB PO SCH (07:59)
[2017-02-05] MEDS ORDERED: cloNIDine HCL 0.1 MG TAB PO PRN (09:00)
[2017-02-08 23:53] LABS: THYROGLOB ABS LESS THAN 1 IU/mL (< OR = 1)
== END 2017-02-05 11:57 | disposition home or self-care (01) | DRG 629 ==
LOC: NEPE 19:48 → NEDA 22:53 → N06A 02-02 02:12
PROVIDERS: ADMIT Obstetrics & Gynecology; ATTEND Obstetrics & Gynecology
PROC: 07B13ZX Excision of Right Neck Lymphatic, Percutaneous Approach, Diagnostic (ICD-10-PCS; principal; 2017-02-02)
DX: C73 Malignant neoplasm of thyroid gland (principal); F33.1 Major depressive disorder, recurrent, moderate; C79.9 Secondary malignant neoplasm of unspecified site; K50.90 Crohn's disease, unspecified, without complications; F11.20 Opioid dependence, uncomplicated; R13.10 Dysphagia, unspecified; G43.909 Migraine, unspecified, not intractable, without status migrainosus; F41.8 Other specified anxiety disorders; F12.90 Cannabis use, unspecified, uncomplicated; F43.10 Post-traumatic stress disorder, unspecified; B19.20 Unspecified viral hepatitis C without hepatic coma; Z72.0 Tobacco use; Z88.2 Allergy status to sulfonamides; Z88.5 Allergy status to narcotic agent; Z90.49 Acquired absence of other specified parts of digestive tract; Z91.410 Personal history of adult physical and sexual abuse; Z91.5 Personal history of self-harm
CPT/HCPCS: 38505; 76937; 77012; 80053; 84439; 84443; 84481; 84702; 85025; 85610; 85652; 85730; 86140; 86376; 86800; 88305; 88341; 88342; 99151; 99152; 99284; J0131; J0780; J1200; J1885; J2060; J2250; J2405; J3010; J7030

== ENCOUNTER 2017-03-16 10:26 | Day surgery (SDC) | payer MEDICAID ==
[~2017-03-16] VITALS: Ht 162.6 cm; Wt 73.9 kg
[~2017-03-16 10:26] MED LIST changes: +BUPR150XL PO; -CLON.5 PO; -HYDR10FO PR; +KLON2TAB PO; +LAMO150 PO; -LIBRAX PO; -OXYC10TA8 PO; -PRED10 PO; -SERT100 PO; +ZOLO100T PO
[2017-03-16] MEDS ORDERED: ceFAZolin 2 GM PREMIX 50 ML IV SCH (11:00)
[2017-03-16] MEDS ORDERED: CHLORHEXIDINE GLUCONATE 2 % 1 PACK (2 CLOTHS) TOPICAL PRN (11:00)
[2017-03-16] MEDS ORDERED: SODIUM CHLORID 0.9% 500 ML IV PRN (11:00)
[2017-03-16] MEDS ORDERED: POVIDONE IODINE 5% (ANTISEPSIS KIT) 4 APPLICATIONS EACH NARE PRN (11:00)
[2017-03-16] MEDS ORDERED: METOPROLOL TARTRATE 25 MG TAB PO PRN (11:00)
[2017-03-16] MEDS ORDERED: LACTATED RINGER'S 1000 ML IV PRN (11:00)
[2017-03-16] MEDS ORDERED: INSULIN HUMAN REGULAR 1,000 UNITS/10 ML VIAL SQ PRN (11:00)
[2017-03-16 11:30] VITALS: BP 101/56; PULSE 68; RESP 16; TEMP 98.7; O2SAT 98
[2017-03-16] MEDS ORDERED: PROPOFOL 200 MG/20 ML AMP IV ONE (12:00)
[2017-03-16] MEDS ORDERED: LACTATED RINGER'S 1000 ML INJ 1,000 ML IV ONE (12:00)
[2017-03-16] MEDS ORDERED: PHENYLEPH/NS 1000 MCG/10 ML SYR IV ONE (12:00)
[2017-03-16] MEDS ORDERED: ONDANSETRON HCL 4 MG/2 ML VIAL IV PUSH ONE (12:00)
[2017-03-16] MEDS ORDERED: ACETAMINOPHEN 1000 MG/100 ML VIAL IV ONE (12:26)
[2017-03-16] MEDS ORDERED: MIDAZOLAM HCL 2 MG/2 ML VIAL ONE (12:41)
[2017-03-16] MEDS ORDERED: BUPIVACAINE/EPINEPHRINE 0.5% 50 ML VIAL ONE (12:43)
[2017-03-16] MEDS ORDERED: BUPIVACAINE/EPINEPHRINE 0.5% PF 30 ML VIAL ONE (12:44)
[2017-03-16] MEDS ORDERED: FAMOTIDINE 20 MG/2 ML VIAL ONE (12:44)
[2017-03-16] MEDS ORDERED: DEXAMETHASONE SOD PHOS 4 MG/ML VIAL ONE (12:44)
[2017-03-16] MEDS ORDERED: BUPIVACAINE/EPINEPHRINE 0.5% PF 10 ML VIAL INFIL ONE (13:30)
[2017-03-16] MEDS ORDERED: ceFAZolin INJ 1,000 MG VIAL IV ONE (16:49)
[2017-03-16] MEDS ORDERED: fentaNYL CITRATE 250 MCG/5 ML AMP ONE (17:26)
[2017-03-16] MEDS ORDERED: *MEPERIDINE 25 MG INJ VIAL PERIprocedural Use ONLY ONE (17:28)
[2017-03-16] MEDS ORDERED: SODIUM CHLORIDE 0.9% FLUSH 10 ML FLUSH IV FLUSH PRN (17:45)
[2017-03-16] MEDS ORDERED: ONDANSETRON HCL 4 MG/2 ML VIAL IV PRN (17:45)
[2017-03-16] MEDS ORDERED: Post-op Orders (for Pharmacy) MISC XX ONE (17:45)
[2017-03-16] MEDS ORDERED: ACETAMINOPHEN 325 MG TAB PO PRN (17:45)
[2017-03-16] MEDS ORDERED: ACETAMINOPHEN/HYDROcodone 325 MG/5 MG TAB PO PRN ×2 (17:45)
--- NOTE | 2017-03-16 17:45 | HHI.PR ---
Immediate Post Op Note Procedure Date: March 16, 2017 Pre Op Diagnosis: (1) Papillary carcinoma of thyroid Post Op Diagnosis: (1) Papillary carcinoma of thyroid Surgeon: Jose Greer Leave Manager(s): MD Ian Procedure: total thyroidectomy selective lymph node dissection right level 3-4, central level 6 Findings: right thyroid lobe mass, right level 3-4 and 6 grossly positive lymph nodes Complications: none Specimen(s) removed: total thyroid, lymph nodes Estimated blood loss: 50ml Anesthesia: General, Local Drains: None IVF Patient to: PACU Patient Condition: Good Jose Greer MD March 16, 2017 17:45
[2017-03-16] MEDS: SODIUM CHLOR 0.9% 1000 ML INJ 1,000 ML IV SCH (18:00)
--- NOTE | 2017-03-16 19:09 | EKG ---
Date Performed: 03/16/2017 Time Performed: 11:33:01 PTAGE: 36 years EKG: Sinus rhythm NORMAL ECG PREVIOUS TRACING : 10/10/2010 02.50 Compared to the previous tracing rate faster DOCTOR: Roberth Ray Interpretating Date/Time 03/16/2017 19:07:22
[2017-03-16 20:00] VITALS: BP 96/54; PULSE 58; RESP 16; TEMP 96; O2SAT 95
[2017-03-16] MEDS: CALCIUM CARBONATE 500 MG CHEWABLE TAB CHEW SCH (20:02)
[2017-03-16] MEDS: clonazePAM 1 MG TAB PO SCH (20:02)
[2017-03-16] MEDS: SODIUM CHLORIDE 0.9% FLUSH 10 ML FLUSH IV FLUSH SCH (20:04)
[2017-03-16] MEDS: IBUPROFEN 600 MG TAB PO PRN (20:19)
[2017-03-16 21:47] LABS: BASOPHIL % 0.1 % (0.0-2.0); HEMATOCRIT 34.3 % (35.0-46.0); HEMO FLAGS DIFF FINAL; LYMPH % 13.9 % (9.0-44.0); LYMPHOCYTE # 1.2 TH/MM3 (1.0-4.8); MEAN CELL VOLUME 85.4 FL (80.0-100.0); MEAN CORPUSCULAR HEMOGLOBIN 29.4 PG (27.0-34.0); MEAN CORPUSCULAR HGB CONC 34.4 % (32.0-36.0); MONO % 3.5 % (0.0-8.0); NEUT % 82.5 % (16.0-70.0); PLATELET COUNT 211 TH/MM3 (150-450); RED BLOOD COUNT 4.02 MIL/MM3 (4.00-5.30); RED CELL DISTRIBUTION WIDTH 12.9 % (11.6-17.2); WHITE BLOOD COUNT 8.5 TH/MM3 (4.0-11.0)
[2017-03-16 21:57] VITALS: BP 99/50; PULSE 66; RESP 17; O2SAT 95
[2017-03-16] MEDS ORDERED: ZOLPIDEM TARTRATE 5 MG TAB PO ONE (22:30)
[2017-03-17] VITALS: BP 98/61; PULSE 55; RESP 16; TEMP 96.6; O2SAT 95
[2017-03-17 00:54] VITALS: O2SAT 94
[2017-03-17 04:00] VITALS: BP 94/55; PULSE 58; RESP 16; TEMP 96.9; O2SAT 95
[2017-03-17] MEDS: SODIUM CHLOR 0.9% 1000 ML INJ 1,000 ML IV SCH (04:36)
[2017-03-17 05:25] VITALS: BP 103/51; PULSE 69; RESP 18; O2SAT 98
[2017-03-17] MEDS: IBUPROFEN 600 MG TAB PO PRN (06:42)
[2017-03-17 08:00] VITALS: BP 83/44; PULSE 75; RESP 15; TEMP 97.4; O2SAT 95
[2017-03-17] MEDS ORDERED: buPROPion HCL 150 MG SUSTAINED RELEASE TAB PO SCH (09:00)
[2017-03-17] MEDS ORDERED: lamoTRIgine 25 MG TAB PO SCH (09:00)
[2017-03-17] MEDS ORDERED: lamoTRIgine 100 MG TAB PO SCH (09:00)
[2017-03-17] MEDS: SODIUM CHLORIDE 0.9% FLUSH 10 ML FLUSH IV FLUSH SCH (09:00)
[2017-03-17] MEDS: CALCIUM CARBONATE 500 MG CHEWABLE TAB CHEW SCH (09:08)
[2017-03-17] MEDS: clonazePAM 1 MG TAB PO SCH (09:08)
[2017-03-17 09:10] VITALS: O2SAT 94
--- NOTE | 2017-03-18 07:59 | MP ---
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 PROCEDURE 1. Total thyroidectomy 2. Selective lymph node dissection levels right three and four and level six central neck dissection. ANESTHESIA General and local anesthetic at the level of the skin. ATTENDING SURGEON Bonita King MD MAINTENANCE GROUNDSKEEPER Lino Sosa MD BLOOD LOSS 50 cc COMPLICATIONS None FINDINGS Good recurrent laryngeal nerve function with nerve stimulator throughout the case and at the end of the case prior to closure. Multiple palpable lymph nodes at level three and four on the right and multiple palpable nodes in the level six centrally. All palpable disease in the neck removed. INDICATIONS FOR PROCEDURE The patient is a 36-year-old female who had developed discomfort and swelling of her right neck. A fine-needle aspiration and imaging did confirm a right cervical lymph node at level two or three areas of the neck that were positive for metastatic papillary thyroid carcinoma. The patient on evaluation by radiation oncology was found to be a candidate for treatment with radioactive iodine and was also recommended to undergo total thyroidectomy and lymph node dissection and removal of all gross disease. The risks, benefits and alternatives to the procedure were discussed with the patient and her family prior to the procedure. The patient agreed to undergo the procedure. PROCEDURE After informed consent obtained, the patient was taken to the operating room, placed in the supine position, placed under general endotracheal anesthesia with a nerve monitor, endotracheal tube. The patient's neck was prepped and draped in a sterile fashion. Time-out was performed. An 8 cm horizontal skin incision was made with a 15 blade scalpel at skin line of tension on the anterior neck. This a symmetrical incision. Using Bovie electrocautery, we dissected to the platysma and replaced some very short small platysmal flaps superiorly and inferiorly. We were able to open the strap muscles midline and retract these laterally. We turned our attention to the right side of the neck which was the site of the malignancy. We started by dissection of the anterior portion of the right lobe and we then turned our attention towards the superior pole. We took down the parathyroid artery and the superior pole with right-angle dissectors as well as the harmonic focus. There was no definitive right superior parathyroid identified, but this did not appear to be our specimen either. We did identify a right inferior parathyroid. We dissected out the right inferior pole which was at the right-angle and focus dissector. We did, at this point in time once we came back along the posterior aspect of thyroid, we did not immediately identify the right recurrent laryngeal nerve and this did stimulate, but was weak. We did have a small amount of oozing from the thyroid therefore we did place some Surgicel at this point for hemostasis in order to get better visualization after he had some better hemostasis in this area. We then turned our attention towards the left lobe. This was essentially a normal left lobe and we were able to take down the superior and inferior pole in a similar fashion. We did definitively identify a left upper parathyroid lobe and a left lower parathyroid gland that were preserved. We rolled this thyroid medially and also divided the isthmus and took down some of the inferior portion of the ligament of Rhodes. This gave us great exposure of the nerve and again this was identified and stimulated on the left quite easily. We then completed our dissection of the left lobe off to the ligament of Rhodes. We completed the transection of the isthmus and handed this off as the left lobe of thyroid. We then again, at this point in time, turned our attention back to the right lobe. We removed our Surgicel and there was excellent hemostasis. We had good visualization at this point as well. We did continue dissecting some of the ligament of Rhodes inferiorly and once we identified our nerve coming medially to the cricopharyngeus. We were able to safely dissect the ligament of Rhodes off of the trachea laterally. This was passed off as a right thyroid lobe. We then turned our attention towards lymph node dissection. We retracted down to level six superior to the sternal notch and identified several palpable lymph nodes all of which were removed using the focus and Bovie electrocautery. These were all passed off for level six central lymph node dissection. We then turned our attention towards the neck. There were no palpable lymph nodes in the left side of the neck. There were two large palpable lymph nodes at level two. Through our already in place incision, we mobilized the platysma laterally on the right and retracted the SCM medially. This then gave us excellent exposure of level two and three. We dissected into the lymph node packet and identified the two large palpable lymph nodes in the fatty tissue and nonpalpable lymph nodes around these lymph nodes. With careful dissection with Vicryl ties and hemoclips, as well as with focus, we did dissect the lymph nodes in level three and four. Once these were removed, they were labeled as level three lymph nodes and passed off for permanent processing. We carefully palpated the neck. There was absolutely no further palpable disease in the neck centrally or on the right had essentially normal anatomy at this time. We had excellent hemostasis. We did place some pieces of Surgicel over the right lymph node dissection area, as well as over the area of the thyroid. We turned our attention towards closure. We closed the strap muscles at the midline with 3-0 Vicryl suture. Of note, prior to closure, we did have good stimulation of both recurrent laryngeal nerves on the nerve monitor. We then closed the platysma with a running 3-0 Vicryl suture followed 4-0 Monocryl and Steri-Strips and Mastisol. At this point in time, the patient was discontinued from anesthesia, was taken to PACU in stable condition. The patient tolerated the procedure well with no apparent complications. All counts were correct. I was present and scrubbed for the entire procedure. MD GABE Dietz/BRISA /5:25 PM /7:31 AM
== END 2017-03-17 11:46 | disposition home or self-care (01) ==
LOC: HSDC 10:26 → N07A 19:35 → HSDC 03-17 11:46
PROVIDERS: ATTEND Surgery
DX: C73 Malignant neoplasm of thyroid gland (principal); C77.0 Secondary and unspecified malignant neoplasm of lymph nodes of head, face and neck; Z01.810 Encounter for preprocedural cardiovascular examination
CPT/HCPCS: 00320; 60252; 85025; 88307; 93005; J0131; J0690; J1100; J2175; J2250; J2370; J2405; J3010; J7030; J7120

== ENCOUNTER 2017-05-30 13:00 | Day surgery (SDC) | payer MEDICAID ==
[~2017-05-30 13:00] MED LIST changes: -ZOLO100T PO
[2017-05-30 14:09] VITALS: BP 105/70; PULSE 82; RESP 14; TEMP 98.8; O2SAT 99
--- NOTE | 2017-05-30 16:00 | RADRPT ---
EXAM DATE/TIME: 05/30/2017 14:09 [facility] COMPARISON: No previous studies available for comparison. EXTERNAL COMPARISON: [facility], CT SOFT TISSUE NECK, W/O CONTRAST, May 06 2017, CT SOFT TISSUE NECK,W/ CONTRAST, February 01, 2017, US SOFT TISSUE NECK, January 31, 2017. INDICATIONS : Right neck lymph node. MEDICAL HISTORY : Crohn's disease. Carcinoma, thyroid. Hepatitis C. Seizures. Migraines. GERD. Renal disease. ADD. Anem ia. Depression. Anxiety. Substance use. SURGICAL HISTORY : Thyroidectomy. section. Tubal ligation. Blood transfusions. ENCOUNTER: Initial ACUITY: 1 month PAIN SCORE: 3/10 LOCATION: Right neck ORGAN: Right lymph node SPECIMENS: Two core specimen(s) submitted for pathologic evaluation. DEVICE: 20 gauge Temno needle Post procedure scanning reveals no hematoma or other complication. The possibility does exist that the tissue obtained will be non-diagnostic. If the sample is non-amy gnostic a repeat biopsy or surgical biopsy may need to be performed. TECHNIQUE: 1. Ultrasound guidance for needle biopsy. 2. Needle biopsy. The risks, benefits, and alternatives to ultrasound guided needle biopsy were explained to the patien t in detail including the risk of bleeding and infection. Written and verbal informed consent was ob tained to biopsy the adenopathy in the right neck. With the patient on the ultrasound table, images were obtained. Overlying skin was prepped and drape d in the usual sterile fashion and Lidocaine was utilized as a local anesthetic. Under direct CT guidance 2 cores were obtained of pathological adenopathy in the right neck.. CONCLUSION: Uncomplicated ultrasound guided needle biopsy. Preliminary interpretation is positive for malignancy. Jared Rizvi MD FACR on May 30, 2017 at 15:55 Board Certified Radiologist. This report was verified electronically.
[2017-05-30] MEDS ORDERED: LIDOCAINE HCL 1% PF 30 ML VIAL ONE (16:09)
== END 2017-05-30 16:20 | disposition home or self-care (01) ==
LOC: HRAD 13:00 → HRIP 13:02 → HRAD 16:20
PROVIDERS: ATTEND Radiology Radiation Oncology
DX: C96.9 Malignant neoplasm of lymphoid, hematopoietic and related tissue, unspecified (principal); B19.10 Unspecified viral hepatitis B without hepatic coma; K21.9 Gastro-esophageal reflux disease without esophagitis; F32.9 Major depressive disorder, single episode, unspecified; F41.9 Anxiety disorder, unspecified; K50.90 Crohn's disease, unspecified, without complications; Z85.850 Personal history of malignant neoplasm of thyroid
CPT/HCPCS: 38505; 76942; 88305; 88333

== ENCOUNTER 2017-08-30 11:30 | Observation (INO) | payer MEDICAID ==
[~2017-08-30] VITALS: Ht 162.6 cm; Wt 70.5 kg
[~2017-08-30 11:30] MED LIST changes: +GLYCOPYRROLATE 1 MG/5 ML SYRINGE IV PUSH ONE; +KETOROLAC TROMETHAMINE 30 MG/ML (IVP) VIAL IV PUSH ONE; +LIDOCAINE HCL 1% PF 5 ML AMPULE OTHER ONE; +MIDAZOLAM HCL 2 MG/2 ML VIAL IV ONE; +NEOSTIGMINE 3 MG/3 ML SYR IV ONE; +ONDANSETRON HCL 4 MG/2 ML VIAL IV PUSH ONE; +PROPOFOL 200 MG/20 ML AMP IV ONE; +ROCURONIUM INJ 50 MG/5 ML SYRINGE IV PUSH ONE; +SODIUM CHLORIDE 0.9% 20 ML VIAL IV ONE; +ePHEDrine/NS 25 MG/5 ML SYR IV ONE
[2017-08-30] MEDS ORDERED: LEVO100T5 PO (12:10)
[2017-08-30] MEDS ORDERED: POVIDONE IODINE 5% (ANTISEPSIS KIT) 4 APPLICATIONS EACH NARE PRN (12:15)
[2017-08-30] MEDS ORDERED: INSULIN HUMAN REGULAR 1,000 UNITS/10 ML VIAL SQ PRN (12:15)
[2017-08-30] MEDS ORDERED: LACTATED RINGER'S 1000 ML IV PRN (12:15)
[2017-08-30] MEDS ORDERED: CHLORHEXIDINE GLUCONATE 2 % 1 PACK (2 CLOTHS) TOPICAL PRN (12:15)
[2017-08-30] MEDS ORDERED: ceFAZolin 2 GM PREMIX 50 ML IV SCH (12:15)
[2017-08-30] MEDS ORDERED: METOPROLOL TARTRATE 25 MG TAB PO PRN (12:15)
[2017-08-30] MEDS ORDERED: SODIUM CHLORID 0.9% 500 ML IV PRN (12:15)
[2017-08-30] MEDS ORDERED: BUPIVACAINE LIPOSOME PF 1.3% 20 ML VIAL ONE (13:16)
[2017-08-30] MEDS ORDERED: FAMOTIDINE 20 MG/2 ML VIAL ONE (13:43)
[2017-08-30] MEDS ORDERED: HYDROmorphone HCL PF 2 MG/ML VIAL ONE (13:44)
[2017-08-30] MEDS ORDERED: ACETAMINOPHEN 1000 MG/100 ML 100 ML IV ONE (13:46)
[2017-08-30] MEDS ORDERED: KETAMINE HCL 500 MG/5 ML VIAL ONE (13:48)
[2017-08-30] MEDS ORDERED: BUPIVACAINE LIPOSOME PF 1.3% 20 ML VIAL INFIL ONE (15:00)
[2017-08-30] MEDS ORDERED: traMADol HCL 50 MG TAB PO PRN (16:00)
[2017-08-30] MEDS ORDERED: Post-op Orders (for Pharmacy) MISC XX ONE (16:00)
[2017-08-30] MEDS ORDERED: BENZOCAINE 20% ORAL SPR 60 ML CAN MT PRN (16:00)
[2017-08-30] MEDS ORDERED: PROMETHAZINE HCL 25 MG SUPP RECTAL PRN (16:00)
[2017-08-30] MEDS ORDERED: SODIUM CHLORIDE 0.9% FLUSH 10 ML FLUSH IV FLUSH PRN (16:00)
[2017-08-30] MEDS ORDERED: KETOROLAC TROMETHAMINE 30 MG/ML (IVP) VIAL IV PUSH PRN (16:00)
[2017-08-30] MEDS ORDERED: NALOXONE HCL 0.4 MG/ML AMP IV PUSH PRN (16:00)
[2017-08-30] MEDS ORDERED: PILL SPLITTER OTHER PRN (16:30)
[2017-08-30] MEDS ORDERED: DO NOT ADM ANY ANTICOAGULANT DRUGS PRN (16:30)
[2017-08-30] MEDS ORDERED: HYDROmorphone HCL PF 1 MG/ML VIAL ONE (16:45)
[2017-08-30] MEDS ORDERED: traMADol HCL 50 MG TAB ONE (17:22)
[2017-08-30 18:07] VITALS: BP 115/70; PULSE 89; RESP 17; TEMP 96.5; O2SAT 97
[2017-08-30] MEDS: clonazePAM 1 MG TAB PO SCH (18:23)
[2017-08-30] MEDS: traMADol HCL 50 MG TAB PO PRN (18:24)
[2017-08-30] MEDS: ONDANSETRON HCL 4 MG/2 ML VIAL IV PUSH PRN (18:24)
[2017-08-30] MEDS: FAMOTIDINE 20 MG TAB PO SCH (19:51)
[2017-08-30] MEDS: SODIUM CHLORIDE 0.9% FLUSH 10 ML FLUSH IV FLUSH SCH (19:52)
[2017-08-30] MEDS: ACETAMINOPHEN 1000 MG/100 ML 100 ML IV SCH (19:52)
[2017-08-30 20:00] VITALS: BP 93/54; PULSE 62; RESP 20; TEMP 96.3; O2SAT 93
[2017-08-30 20:30] VITALS: BP 102/59
[2017-08-30] MEDS: BUPRENORPHINE HCL 8 MG SUBLINGUAL TAB SL SCH (21:08)
[2017-08-30] MEDS: diphenhydrAMINE HCL 50 MG/ML VIAL IV PUSH PRN (21:17)
--- NOTE | 2017-08-30 23:26 | MP ---
cc: BONITA KING DATE OF SURGERY: 08/30/2017 PREOPERATIVE DIAGNOSIS: Metastatic thyroid cancer, right cervical lymph node, level III. POSTOPERATIVE DIAGNOSIS Metastatic thyroid cancer, right cervical lymph node, level III. PROCEDURE Right selective cervical lymph node dissection, levels II and III. SURGEON: Bonita King MD. COMMERCIAL SUBCONTRACTOR: Santosh Lund. ANESTHESIA General and local with Exparel BLOOD LOSS 50 cc COMPLICATIONS None FINDINGS A large 2 cm lymph node clearly abnormal with thyroid appearing type tissue grossly consistent with metastatic lymph node on PET scan. No other cervical lymphadenopathy in the right neck, in level II or III. INDICATIONS FOR PROCEDURE The patient is a 36 year-old female with history of differentiated thyroid cancer. The patient underwent previous total thyroidectomy and selective neck dissection of the central neck. However, unfortunately during follow up, the patient did not receive her treatment due to some compliance issues and did have a recurrence in her right cervical nodes. Radiation oncology recommended removal of her grossly positive, PET positive disease in the right neck prior to radioactive iodine therapy. I discussed this with the patient, the risks, benefits and alternatives and she agreed to undergo the procedure. DESCRIPTION OF PROCEDURE: The patient was taken to the operating room, placed in supine position. The patient placed under general endotracheal anesthesia. The patient's neck was prepped and draped in sterile fashion. Time out was performed. A skin incision was made approximately 3 cm long, along the skin crease, brought to level II to III in the right mid neck. This was done with a 15 blade scalpel. We used the Bovie electrocautery to dissect the platysma and make platysmal flaps approximately a centimeter on either side. We placed the self-retainer. We mobilized the SCM on the inferior border. There is significant scarring from previous surgery from the thyroid. We did divide some cervical branches. The auricular nerve was identified and preserved. We did enter level II and III of the neck and easily identified the very palpable bulky grossly abnormal lymph node. It grossly had thyroid appearing tissue in it. This was removed using Bovie electrocautery as well as hemoclips anteriorly, medially and posterior near the vascular nerve structures with the use of careful dissection with the right-angle division with 4-0 Vicryl and hemoclips. There was much neovascularization of the lymph node. This was passed off intact as levels II and III lymph node dissection. We then were able to palpate levels II and III, essentially no abnormal palpable nodes and essentially there was minimal remaining lymph node tissue as she had undergone previous lymphadenectomy in levels , and even IV and appeared to be up into III from her thyroidectomy. Again there was no normal lymph nodes visible or pathologically palpable nodes, or visible nodes in the right neck. At this time I felt that the patient had received any benefit she could receive from resection and we turned towards closure. We had excellent hemostasis. We closed the platysma with interrupted 3-0 Vicryl suture, closed with skin with 4-0 Monocryl and Dermabond. The patient was discontinued from anesthesia and taken to PACU in stable condition. The patient tolerated the procedure well. No apparent complications. All counts were correct. MD GABE Dietz/TOÑA /3:53 PM /11:00 PM
[2017-08-31] VITALS (8 sets, daily range): BP systolic 108–123; BP diastolic 57–76; PULSE 50–79; RESP 15–18; TEMP 96.2–98.3; O2SAT 94–98
[2017-08-31] MEDS: SODIUM CHLOR 0.9% 1000 ML INJ 1,000 ML IV SCH ×3 (01:52→21:07)
[2017-08-31] MEDS: ACETAMINOPHEN 1000 MG/100 ML 100 ML IV SCH ×4 (02:00→12:54)
[2017-08-31] MEDS: KETOROLAC TROMETHAMINE 30 MG/ML (IVP) VIAL IV PUSH PRN (02:42)
[2017-08-31] MEDS: ONDANSETRON HCL 4 MG/2 ML VIAL IV PUSH PRN ×2 (02:42→12:43)
[2017-08-31] MEDS ORDERED: clonazePAM 1 MG TAB PO ONE (03:15)
[2017-08-31] MEDS: LEVOTHYROXINE SODIUM 100 MCG TAB PO SCH (05:11)
[2017-08-31] MEDS: diphenhydrAMINE HCL 50 MG/ML VIAL IV PUSH PRN ×2 (05:19→13:48)
[2017-08-31] MEDS ORDERED: SUMAtriptan SUCCINATE 25 MG TAB PO ONE (06:30)
[2017-08-31] MEDS ORDERED: LORazepam 2 MG/ML VIAL IV PUSH ONE (06:30)
[2017-08-31] MEDS: traMADol HCL 50 MG TAB PO PRN (06:33)
[2017-08-31] MEDS: FAMOTIDINE 20 MG TAB PO SCH ×2 (08:54→21:04)
[2017-08-31] MEDS: clonazePAM 1 MG TAB PO SCH ×3 (08:54→17:20)
[2017-08-31] MEDS: BUPRENORPHINE HCL 8 MG SUBLINGUAL TAB SL SCH ×3 (08:54→17:20)
[2017-08-31] MEDS: SODIUM CHLORIDE 0.9% FLUSH 10 ML FLUSH IV FLUSH SCH ×2 (08:55→21:06)
[2017-08-31] MEDS: lamoTRIgine 100 MG TAB PO SCH (08:55)
[2017-08-31] MEDS ORDERED: LIDOCAINE HCL 5% PATCH T-DERMAL ONE (14:30)
[2017-08-31] MEDS: LIDOCAINE HCL 5% PATCH T-DERMAL SCH (16:14)
[2017-08-31] MEDS: GABAPENTIN 400 MG CAP PO SCH (17:19)
[2017-08-31] MEDS: DULoxetine HCl DR 30 MG CAP PO SCH (17:24)
[2017-08-31] MEDS: PRAZOSIN HCL 1 MG CAP PO SCH (17:25)
--- NOTE | 2017-08-31 19:08 | HHI.PR ---
Subjective Subjective Notes pain better this afternoon Objective Vitals/I&O Vital Signs Date Time Temp Pulse Resp B/P (MAP) Pulse Ox O2 Delivery O2 Flow Rate FiO2 08/31/17 17:53 96 21 08/31/17 16:00 97.6 50 15 116/60 (78) 08/30/17 17:20 Room Air 08/30/17 15:57 8 Cardiovascular: Regular Lungs: Clear Abdomen: Non-distended, Non-tender Narrative Exam right neck c/d/i, minimal swelling A/P Assessment and Plan 36yo female with metastatic thyroid cancer s/p selective neck dissection, stable. appreciate Dr. Urrutia help continue pain control, avoid narcotics incision c/d/i Jose Greer MD Aug 31, 2017 19:08
[2017-08-31] MEDS: REMOVE OLD LIDOCAINE PATCH T-DERMAL SCH (21:00)
[2017-08-31] MEDS: LORazepam 1 MG TAB PO PRN (21:06)
[2017-09-01] VITALS (8 sets, daily range): BP systolic 95–134; BP diastolic 51–82; PULSE 53–76; RESP 16–18; TEMP 96.9–98.6; O2SAT 95–97
[2017-09-01] MEDS: LEVOTHYROXINE SODIUM 100 MCG TAB PO SCH (06:03)
[2017-09-01] MEDS: KETOROLAC TROMETHAMINE 30 MG/ML (IVP) VIAL IV PUSH PRN ×2 (06:40→21:42)
[2017-09-01] MEDS: SODIUM CHLOR 0.9% 1000 ML INJ 1,000 ML IV SCH ×2 (07:52→17:52)
[2017-09-01] MEDS: SODIUM CHLORIDE 0.9% FLUSH 10 ML FLUSH IV FLUSH SCH ×2 (09:16→21:40)
[2017-09-01] MEDS: FAMOTIDINE 20 MG TAB PO SCH ×2 (09:19→21:41)
[2017-09-01] MEDS: DULoxetine HCl DR 30 MG CAP PO SCH (09:19)
[2017-09-01] MEDS: LIDOCAINE HCL 5% PATCH T-DERMAL SCH (09:19)
[2017-09-01] MEDS: BUPRENORPHINE HCL 8 MG SUBLINGUAL TAB SL SCH ×3 (09:21→17:51)
[2017-09-01] MEDS: GABAPENTIN 400 MG CAP PO SCH ×3 (09:21→17:51)
[2017-09-01] MEDS: lamoTRIgine 100 MG TAB PO SCH (09:21)
[2017-09-01] MEDS: PRAZOSIN HCL 1 MG CAP PO SCH ×3 (09:21→18:00)
[2017-09-01] MEDS: clonazePAM 1 MG TAB PO SCH ×3 (09:25→17:51)
[2017-09-01] MEDS: traMADol HCL 50 MG TAB PO PRN ×2 (10:31→16:03)
[2017-09-01] MEDS: LORazepam 1 MG TAB PO PRN ×2 (10:39→18:50)
[2017-09-01] MEDS: ONDANSETRON HCL 4 MG/2 ML VIAL IV PUSH PRN (17:51)
[2017-09-01] MEDS: diphenhydrAMINE HCL 50 MG/ML VIAL IV PUSH PRN (18:08)
[2017-09-01] MEDS: REMOVE OLD LIDOCAINE PATCH T-DERMAL SCH (21:00)
[2017-09-01] MEDS: SUMAtriptan SUCCINATE 25 MG TAB PO PRN (23:36)
--- NOTE | 2017-09-01 23:36 | HHI.PR ---
Subjective Subjective Notes requesting multiple medications changes Objective Vitals/I&O Vital Signs Date Time Temp Pulse Resp B/P (MAP) Pulse Ox O2 Delivery O2 Flow Rate FiO2 09/01/17 20:00 96.9 62 16 121/70 (87) 97 09/01/17 08:20 Room Air 21.00 08/31/17 20:54 21 Cardiovascular: Regular Lungs: Clear Abdomen: Non-distended, Non-tender Extremities: No edema, Perfused Narrative Exam right neck c/d/i, minimal swelling A/P Assessment and Plan 36yo female with metastatic thyroid cancer s/p selective neck dissection, stable. appreciate Dr. Urrutia help continue pain control/supportive jail when can tolerate postop pain on oral non-narcotic meds Jose Greer MD Sep 01, 2017 23:36
--- NOTE | 2017-09-01 23:36 | HHI.PR ---
Subjective Subjective Notes requesting multiple medications changes Objective Vitals/I&O Vital Signs Date Time Temp Pulse Resp B/P (MAP) Pulse Ox O2 Delivery O2 Flow Rate FiO2 09/01/17 20:00 96.9 62 16 121/70 (87) 97 09/01/17 08:20 Room Air 21.00 08/31/17 20:54 21 Cardiovascular: Regular Lungs: Clear Abdomen: Non-distended, Non-tender Extremities: No edema, Perfused Narrative Exam right neck c/d/i, minimal swelling A/P Assessment and Plan 36yo female with metastatic thyroid cancer s/p selective neck dissection, stable. appreciate Dr. Urrutia help continue pain control/supportive alf when can tolerate postop pain on oral non-narcotic meds Jose Greer MD Sep 01, 2017 23:36
[2017-09-02] MEDS: diphenhydrAMINE HCL 50 MG/ML VIAL IV PUSH PRN ×2 (00:10→06:18)
[2017-09-02 00:34] VITALS: BP 140/75; PULSE 73; RESP 16; TEMP 96.8; O2SAT 97
[2017-09-02] MEDS: LORazepam 1 MG TAB PO PRN ×3 (03:26→16:26)
[2017-09-02] MEDS: LEVOTHYROXINE SODIUM 100 MCG TAB PO SCH (06:18)
[2017-09-02] MEDS: SODIUM CHLOR 0.9% 1000 ML INJ 1,000 ML IV SCH ×2 (06:19→13:52)
[2017-09-02] MEDS: KETOROLAC TROMETHAMINE 30 MG/ML (IVP) VIAL IV PUSH PRN ×2 (06:45→12:34)
[2017-09-02 08:00] VITALS: BP 122/74; PULSE 60; RESP 17; TEMP 96.3; O2SAT 96
--- NOTE | 2017-09-02 08:00 | PD.CONS ---
HPI Chief Complaint post operative pain anxiety disorder substance use disorder borderline personality need for acute and chronic medication management in context of non compliance and risk for misuse Date Seen: Sep 02, 2017 Time Seen: 07:51 Travel History International Travel<30 Days: No Contact w/Intl Traveler<30Days: No Known Affected Area: No History of Present Illness HPI Patient well known to me and seen through this hospiatlization for lymphadenectomy and known thyroid cancer. Has been part of my practice since her second . hx of Crohn's, substance use disorder, anxiety disorder Has been on MAT through my practice during and after --has been given several second chances after altering scripts, using multiple prescribers and not disclosing multiple physician scripts throughout the last few years.She was dismissed from the practice and when diagnosed with thyroid cancer I agreed to help with MAT and pain management through the all access clinic. She continues to be less than honest with her physicians about tests, scripts and tries to manipulate and split physicians. This behavior delayed her treatment for her recent cancer. She has had uneventful lymphadenectomy and is ready for discharge. I intend to provide her subutex and other meds for 30 days and then dismiss from my care after learning last Tuesday she accepted a klonopin script from me while having filled an alprazolam script from radiation oncologist at [facility] (pharmacy would not fill the klonopin). She may leave the hospital this am and come to my all access clinic at the [facility] today to discuss this transition of care and short term scripts. Allergies-Medications (Allergen,Severity, Reaction): Coded Allergies: Sulfa (Sulfonamide Antibiotics) (Unverified Allergy, Severe, Nausea/ Vomiting, 08/30/17) cranberry (Unverified Allergy, Severe, Hives, 08/30/17) 10/21/05: PT GETS HIVES WITH CRANBERRIES morphine (Unverified Allergy, Severe, Rash, 08/30/17) sulfasalazine (Unverified Allergy, Severe, 10/24/05:PER MD H&P,PT TAKES MESALAMINE AT HOME W/O ADV EFF, 08/30/17) 10/24/05: PER MD H&P, PT TAKES MESALAMINE AT HOME WITHOUT ADVERSE EFFECTS. hydromorphone (Unverified Adverse Reaction, Severe, severe headaches, ) Home Meds Reported Medications Levothyroxine (Levothyroxine) 100 Mcg Tab, 100 MCG PO DAILY for Thyroid, #30 TAB 0 Refills 08/30/17 Lamotrigine (Lamictal) 150 Mg Tab, 150 MG PO DAILY for Control Seizures, #60 TAB 0 Refills 02/01/17 Clonazepam (Klonopin) 2 Mg Tab, 2 MG PO TID, #90 TAB 0 Refills 02/01/17 Discontinued Reported Medications Bupropion HCl ER 24 HR (Wellbutrin Xl 24 HR) 150 Mg Tab, 150 MG PO DAILY for Control Depression, TAB 0 Refills 02/01/17 Physical Exam Vital Signs Date Time Temp Pulse Resp B/P (MAP) Pulse Ox O2 Delivery O2 Flow Rate FiO2 09/02/17 00:34 96.8 73 16 140/75 (96) 97 09/01/17 20:47 21 09/01/17 20:47 95 Nasal Cannula 2.00 09/01/17 20:47 95 Nasal Cannula 2.00 09/01/17 20:00 96.9 62 16 121/70 (87) 97 09/01/17 16:00 98.2 76 18 134/82 (99) 97 09/01/17 12:00 97.7 61 18 125/65 (85) 97 09/01/17 08:20 97 Room Air 21.00 09/01/17 08:00 97.8 53 18 114/74 (87) 95 Narrative GENERAL: Well-nourished, well-developed patient. SKIN: Warm and dry. HEAD: Normocephalic and atraumatic. EYES: No scleral icterus. No injection or drainage. ENT: No nasal drainage noted. Mucous membranes pink. Airway patent. NECK: Supple, trachea midline. No JVD. CARDIOVASCULAR: Regular rate and rhythm without murmurs, gallops, or rubs. RESPIRATORY: Breath sounds equal bilaterally. No accessory muscle use. BREASTS: Bilateral exam showed no masses , no retractions, no nipple discharge. ABDOMEN/GI: Abdomen soft, non-tender, bowel sounds present, no rebound, no guarding Gravid to [-] weeks size Fundal Height: [-] GENITOURINARY: External Genitalia: intact and normal in appearance BUS glands: [-] Cervix: [-] Dilatation: [-] Effacement: [-] Station: [-] Presentation: [-] Membranes: [intact or ruptured] Uterine Contractions: [-] FHT's: Category: [-] Baseline: [-] Reactive: [-] Variability: [-] Decels: [-] EXTREMITIES: No cyanosis or edema. BACK: Nontender without obvious deformity. No CVA tenderness. NEUROLOGICAL: Awake and alert. Motor and sensory grossly within normal limits. Five out of 5 muscle strength in all muscle groups. Normal speech. Data Data Orders Orders Oxycodone (Roxicodone) (09/01/17 12:15) Oxycodone (Roxicodone) (09/01/17 23:00) Sumatriptan Succinate (Imitrex) (09/01/17 23:00) Claire Forrester MD Sep 02, 2017 08:00
[2017-09-02 08:15] VITALS: O2SAT 95
[2017-09-02] MEDS: PRAZOSIN HCL 1 MG CAP PO SCH ×2 (09:00→12:31)
[2017-09-02] MEDS: GABAPENTIN 400 MG CAP PO SCH ×2 (09:41→12:31)
[2017-09-02] MEDS: BUPRENORPHINE HCL 8 MG SUBLINGUAL TAB SL SCH ×2 (09:43→12:30)
[2017-09-02] MEDS: clonazePAM 1 MG TAB PO SCH ×2 (09:44→12:31)
[2017-09-02] MEDS: lamoTRIgine 100 MG TAB PO SCH (09:44)
[2017-09-02] MEDS: LIDOCAINE HCL 5% PATCH T-DERMAL SCH (09:45)
[2017-09-02] MEDS: FAMOTIDINE 20 MG TAB PO SCH (09:45)
[2017-09-02] MEDS: DULoxetine HCl DR 30 MG CAP PO SCH (09:45)
[2017-09-02 12:00] VITALS: BP 131/78; PULSE 58; RESP 17; TEMP 96.2; O2SAT 95
[2017-09-02] MEDS: SUMAtriptan SUCCINATE 25 MG TAB PO PRN (12:32)
[2017-09-02] MEDS ORDERED: BUPR8SUB SL (15:11)
[2017-09-02] MEDS ORDERED: PRAZ1 PO (15:15)
[2017-09-02] MEDS ORDERED: Remove Old Patch T-DERMAL (15:15)
[2017-09-02] MEDS ORDERED: NEUR400C PO (15:18)
--- NOTE | 2017-09-02 15:22 | PD.CONS ---
HPI Chief Complaint discussed medications in detail and 2 weeks scripts will then provide additional 2 week scripts is aware of need to identify new physician for maintenance therapy for addiction and anxiety disorder advised to work through [facility] system, since her radiation therapy will take place there. Will discuss with her radiation oncologist reason for dismissal for practice after 30 days is continued non compliance with contracts for MAT Date Seen: Sep 02, 2017 Travel History International Travel<30 Days: No Contact w/Intl Traveler<30Days: No Known Affected Area: No History of Present Illness HPI Patient well known to me and seen through this hospiatlization for lymphadenectomy and known thyroid cancer. Has been part of my practice since her second . hx of Crohn's, substance use disorder, anxiety disorder Has been on MAT through my practice during and after --has been given several second chances after altering scripts, using multiple prescribers and not disclosing multiple physician scripts throughout the last few years.She was dismissed from the practice and when diagnosed with thyroid cancer I agreed to help with MAT and pain management through the all access clinic. She continues to be less than honest with her physicians about tests, scripts and tries to manipulate and split physicians. This behavior delayed her treatment for her recent cancer. She has had uneventful lymphadenectomy and is ready for discharge. I intend to provide her subutex and other meds for 30 days and then dismiss from my care after learning last Tuesday she accepted a klonopin script from me while having filled an alprazolam script from radiation oncologist at [facility] (pharmacy would not fill the klonopin). She may leave the hospital this am and come to my all access clinic at the [facility] today to discuss this transition of care and short term scripts. Allergies-Medications (Allergen,Severity, Reaction): Coded Allergies: Sulfa (Sulfonamide Antibiotics) (Unverified Allergy, Severe, Nausea/ Vomiting, 08/30/17) cranberry (Unverified Allergy, Severe, Hives, 08/30/17) 10/21/05: PT GETS HIVES WITH CRANBERRIES morphine (Unverified Allergy, Severe, Rash, 08/30/17) sulfasalazine (Unverified Allergy, Severe, 10/24/05:PER MD H&P,PT TAKES MESALAMINE AT HOME W/O ADV EFF, 08/30/17) 10/24/05: PER MD H&P, PT TAKES MESALAMINE AT HOME WITHOUT ADVERSE EFFECTS. hydromorphone (Unverified Adverse Reaction, Severe, severe headaches, ) Home Meds Active Scripts Gabapentin (Neurontin) 400 Mg Cap, 800 MG PO TID for Anxiety and/or Insomnia for 14 Days, #42 CAP Prov:Claire Forrester MD 09/02/17 [Remove Old Patch] MISC No Conflict Check, 1 T-DERMAL Q24H for Pain Management for 3 Days Prov:Claire Forrester MD 09/02/17 Prazosin (Minipress) 1 Mg Cap, 1 MG PO TID for anxiety for 14 Days, #42 CAP Prov:Claire Forrester MD 09/02/17 Buprenorphine (Buprenorphine) 8 Mg Subl, 8 MG SL TID for MAT for 14 Days, #42 TAB Prov:Claire Forrester MD 09/02/17 Reported Medications Levothyroxine (Levothyroxine) 100 Mcg Tab, 100 MCG PO DAILY for Thyroid, #30 TAB 0 Refills 08/30/17 Lamotrigine (Lamictal) 150 Mg Tab, 150 MG PO DAILY for Control Seizures, #60 TAB 0 Refills 02/01/17 Clonazepam (Klonopin) 2 Mg Tab, 2 MG PO TID, #90 TAB 0 Refills 02/01/17 Discontinued Reported Medications Bupropion HCl ER 24 HR (Wellbutrin Xl 24 HR) 150 Mg Tab, 150 MG PO DAILY for Control Depression, TAB 0 Refills 02/01/17 Physical Exam Vital Signs Date Time Temp Pulse Resp B/P (MAP) Pulse Ox O2 Delivery O2 Flow Rate FiO2 09/02/17 12:00 96.2 58 17 131/78 (95) 95 09/02/17 08:15 95 21 09/02/17 08:00 96.3 60 17 122/74 (90) 96 09/02/17 00:34 96.8 73 16 140/75 (96) 97 09/01/17 20:47 21 09/01/17 20:47 95 Nasal Cannula 2.00 09/01/17 20:47 95 Nasal Cannula 2.00 09/01/17 20:00 96.9 62 16 121/70 (87) 97 09/01/17 16:00 98.2 76 18 134/82 (99 97 Narrative GENERAL: Well-nourished, well-developed patient. SKIN: Warm and dry. HEAD: Normocephalic and atraumatic. EYES: No scleral icterus. No injection or drainage. ENT: No nasal drainage noted. Mucous membranes pink. Airway patent. NECK: Supple, trachea midline. No JVD. CARDIOVASCULAR: Regular rate and rhythm without murmurs, gallops, or rubs. RESPIRATORY: Breath sounds equal bilaterally. No accessory muscle use. BREASTS: Bilateral exam showed no masses , no retractions, no nipple discharge. ABDOMEN/GI: Abdomen soft, non-tender, bowel sounds present, no rebound, no guarding Gravid to [-] weeks size Fundal Height: [-] GENITOURINARY: External Genitalia: intact and normal in appearance BUS glands: [-] Cervix: [-] Dilatation: [-] Effacement: [-] Station: [-] Presentation: [-] Membranes: [intact or ruptured] Uterine Contractions: [-] FHT's: Category: [-] Baseline: [-] Reactive: [-] Variability: [-] Decels: [-] EXTREMITIES: No cyanosis or edema. BACK: Nontender without obvious deformity. No CVA tenderness. NEUROLOGICAL: Awake and alert. Motor and sensory grossly within normal limits. Five out of 5 muscle strength in all muscle groups. Normal speech. Data Data Orders Orders Oxycodone (Roxicodone) (09/01/17 23:00) Sumatriptan Succinate (Imitrex) (09/01/17 23:00) MDM Scripts Gabapentin (Neurontin) 400 Mg Cap 800 MG PO TID for Anxiety and/or Insomnia for 14 Days, #42 CAP Prov: Claire Forrester MD 09/02/17 [Remove Old Patch] MISC No Conflict Check 1 T-DERMAL Q24H for Pain Management for 3 Days Prov: Claire Forrester MD 09/02/17 Prazosin (Minipress) 1 Mg Cap 1 MG PO TID for anxiety for 14 Days, #42 CAP Prov: Claire Forrester MD 09/02/17 Buprenorphine (Buprenorphine) 8 Mg Subl 8 MG SL TID for MAT for 14 Days, #42 TAB Prov: Claire Forrester MD 09/02/17 Claire Forrester MD Sep 02, 2017 15:22
[2017-09-02] MEDS ORDERED: OXYC-395 PO (15:24)
[2017-09-02 16:00] VITALS: BP 145/97; PULSE 57; RESP 17; TEMP 99.4; O2SAT 97
== END 2017-09-02 17:55 | disposition home or self-care (01) ==
LOC: HSDC 11:30 → HSDI 16:02 → N07B 17:41
PROVIDERS: ADMIT Surgery; ATTEND Surgery
DX: C73 Malignant neoplasm of thyroid gland (principal)
CPT/HCPCS: 00320; 38724; 88305; 94150; 94762; 96374; 96375; 96376; C9290; G0378; J0131; J0690; J1170; J1200; J1885; J2060; J2250; J2405; J2710; J3010; J7030; J7120